=== PATIENT | female | born 1995 | race Caucasian/White ===

== ENCOUNTER 2018-06-20 21:06 | Emergency (ER) | payer OTHER ==
[~2018-06-20] VITALS: Ht 170.2 cm; Wt 68.2 kg
[2018-06-20 21:07] VITALS: BP 140/83
[2018-06-20] MEDS ORDERED: KETOROLAC 60 MG/2 ML VIAL (J1885) IM ONE (22:45)
[2018-06-20] MEDS ORDERED: KETOROLAC 30 MG/ML VIAL (J1885) IM ONE (23:00)
[2018-06-20 23:19] LABS: INFLUENZA A AMPLIFICATION NEGATIVE (NEGATIVE); INFLUENZA B AMPLIFICATION NEGATIVE (NEGATIVE)
[2018-06-20] MEDS ORDERED: CHLO1.4S2 MT (23:34)
[2018-06-20] MEDS ORDERED: IBUP-1114 PO (23:34)
[2018-06-20] MEDS ORDERED: PERCOCET 5MG/325MG TAB PO ONE (23:45)
--- NOTE | 2018-06-21 01:38 | REP ---
Clinical: Cough . Comparison: None . Technique: PA and lateral. Findings: The mediastinum and cardiac silhouette are normal. The lung jones are clear and without acute consolidation, effusion, or pneumothorax. The skeletal structures are intact and normal. Impression: 1. No acute cardiopulmonary process. Electronically Signed by Judd Corona MD 06/21/2018 01:29 A
== END 2018-06-21 00:11 | disposition home or self-care (01) ==
LOC: M ED 21:06
DX: J06.9 Acute upper respiratory infection, unspecified (principal); F17.200 Nicotine dependence, unspecified, uncomplicated
CPT/HCPCS: 71046; 81025; 87502; 87880; 96372; 99284; J1885

== ENCOUNTER → 2020-06-12 | Outpatient (REF) | payer OTHER ==
[~2020-06-12] MED LIST: CHLO1.4S2 MT; IBUP-1114 PO
== END ==
LOC: M PLALAB 10:39
PROVIDERS: ATTEND Obstetrics & Gynecology
DX: Z34.02 Encounter for supervision of normal first pregnancy, second trimester (principal)

== ENCOUNTER → 2020-07-30 | Outpatient (CLI) | payer OTHER ==
--- NOTE | 2020-07-31 07:36 | REP ---
INDICATION: ANATOMY COMPARISON: None. TECHNIQUE: Transabdominal obstetrical ultrasound with color Doppler evaluation. FINDINGS: Examination demonstrates a single live intrauterine in breech presentation. motion is identified by technologist. Placenta is noted posterior and grade 1 without evidence for placenta previa or abruption. Amniotic fluid volume is normal. Cervix measures 3.1 cm in length and appears closed.. Gestational age by LMP 21 weeks 1 day with ALIYAH 12/09/2020. Gestational age by current measurements 21 weeks 5 days with ALIYAH 12/05/2020. FHR equals 153 beats per minute. BPD: 4.7 cm at 20 weeks 1 day HC: 19.1 cm at 21 weeks 2 days AC: 17.1 cm at 22 weeks 0 days FL: 3.8 cm at 22 weeks 0 days HL: 3.7 cm at 22 weeks 5 days HC/AC: 1.12 Estimated weight 461 grams (83rdpercentile). Anatomical assessment demonstrates normal structures including cranium, choroid plexus, cavum, facial features, lungs, ventricular outflow tracts, diaphragm, stomach, cord insertion/three-vessel cord, bladder, spine, and extremities. Echogenic focus within the left cardiac ventricle consistent with prominent chordae tendineae. Mild renal pelviectasis measuring up to 10 mm in the right kidney. Limited evaluation of the cerebellum and posterior fossa. IMPRESSION: Single live intrauterine in breech presentation demonstrating appropriate estimated weight. Anatomical limitations and findings as described above may warrant re-evaluation and follow-up. <Electronically signed by Judd Corona > 07/31/20 0733
== END ==
LOC: M WHC 13:22
PROVIDERS: ATTEND Specialist
DX: Z36.9 Encounter for antenatal screening, unspecified (principal); Z3A.21 21 weeks gestation of pregnancy

== ENCOUNTER → 2020-08-24 | Outpatient (CLI) | payer OTHER ==
--- NOTE | 2020-08-24 14:22 | REP ---
INDICATION: F/U ANATOMY. COMPARISON: Comparison study July 30, 2020.. TECHNIQUE: Transabdominal obstetric sonography. FINDINGS: Scanning through the gravid uterus demonstrates a viable single intrauterine gestation in cephalic lie. motion is observed and heart rate is recorded at 143 beats per minute. A posterior placenta is seen, grade . One, without evidence of placenta previa. Closed cervical length is measured at 3.4 cm transabdominally. No extrauterine abnormality is observed. Amniotic fluid is subjectively normal. Echogenic foci no longer visible in the left left ventricle. Bilateral renal pyelectasis is observed right more so than left. The AP dimension of the renal pelvis on the right is 11 mm and on the left is 5 mm. Urinary bladder is not distended. urinary tract sonography is recommended. Posterior fossa is seen today and felt to be unremarkable.. Biometry chart: BPD 5.9 cm, 24 weeks 1 day Head circumference 23.0 cm, 25 weeks 0 days Abdominal circumference 19.7 cm, 24 weeks 2 days Femur length 4.6 cm, 25 weeks 2 days Humeral length 4.2 cm, 25 weeks 2 days HC AC ratio normal 1.17 Cephalic index normal 0.70 Estimated weight 734 g, 1 lb 9 oz, 43rd percentile for 24 weeks 5 days IMPRESSION: Viable single intrauterine gestation at 24 weeks 6 days by today's composite sonographic criteria. ALIYAH by today's sonography December 08, 2020.. No complication identified. Expected gestational age estimate based on ALIYAH of December 09, 2020 is 24 weeks 5 days. Appropriate interval growth. Bilateral renal pyelectasis. Follow-up obstetric scan and urinary tract sonography recommended. <Electronically signed by Ayan Zhang > 08/24/20 [id number]
== END ==
LOC: M WHC 13:21
PROVIDERS: ATTEND Specialist
DX: Z34.02 Encounter for supervision of normal first pregnancy, second trimester (principal)

== ENCOUNTER → 2020-10-01 | Outpatient (CLI) | payer OTHER ==
--- NOTE | 2020-10-02 07:04 | REP ---
INDICATION: ANATOMY COMPARISON: 08/24/2020 TECHNIQUE: Transabdominal obstetrical ultrasound with color Doppler evaluation. FINDINGS: Examination demonstrates a single live intrauterine in cephalic presentation. motion is identified by technologist. Placenta is noted posterior and grade 1 without evidence for placenta previa or abruption. Amniotic fluid volume is normal. Selected gestational age: 30 weeks 1 day with ALIYAH 12/09/2020. Gestational age by current measurements 30 weeks 6 days with ALIYAH 12/04/2020. FHR equals 150 beats per minute. GAGAN: 10.2 cm (9.0-23.5) Umbilical artery SD ratio: 2.95 (1.95-4.08) Estimated weight 1627 grams (58thpercentile). Anatomical assessment demonstrates normal structures including cranium, choroid plexus, cavum, cerebellum/posterior fossa, facial features, lungs, four-chamber heart/ventricular outflow tracts, diaphragm, stomach, cord insertion/three-vessel cord, bladder, spine, and extremities. Bilateral renal hydronephrosis noted. IMPRESSION: Single live intrauterine in cephalic presentation demonstrating appropriate estimated weight. Renal hydronephrosis warrants follow-up examination. <Electronically signed by Judd Corona > 10/02/20 0700
== END ==
LOC: M WHC 13:00
PROVIDERS: ATTEND Specialist
DX: Z34.82 Encounter for supervision of other normal pregnancy, second trimester (principal)

== ENCOUNTER → 2020-11-13 | Outpatient (REF) | payer OTHER | LOC: M SFHCWAGY 13:00 | PROVIDERS: ATTEND Advanced Practice Midwife | DX: Z36.89 Encounter for other specified antenatal screening (principal); Z3A.36 36 weeks gestation of pregnancy ==

== ENCOUNTER 2020-11-22 08:48 | Outpatient (CLI) | payer OTHER ==
[2020-11-22] VITALS (8 sets, daily range): BP systolic 121–126; BP diastolic 58–67
[~2020-11-22] VITALS: Ht 170.2 cm; Wt 103.6 kg
[2020-11-22] MEDS ORDERED: PREN1TAB33 PO (09:17)
[2020-11-22] MEDS ORDERED: HOME MED LIST COMPLETE! XX SCH (09:20)
[2020-11-22 09:54] LABS: HEMATOCRIT 35.4 % (36.0-47.0); HEMOGLOBIN 11.5 g/dl (12.0-15.5); MEAN CORPUSCULAR HEMOGLOBIN 29.5 pg (27.0-33.0); MEAN CORPUSCULAR HGB CONC 32.5 g/dl (32.0-36.5); MEAN CORPUSCULAR VOLUME 90.8 fl (80.0-96.0); PLATELET COUNT, AUTOMATED 184 10^3/uL (150-450); WHITE BLOOD COUNT 9.7 10^3/uL (4.0-10.0)
[2020-11-22 10:15] LABS: CREATININE,RANDOM URINE 21.9 MG/DL; TOTAL PROTEIN,RANDOM URINE 6.5 MG/DL (0.0-12.0)
[2020-11-22 10:43] LABS: ALBUMIN 2.5 GM/DL (3.2-5.2); ALT/SGPT 14 U/L (12-78); BILIRUBIN,TOTAL 0.1 MG/DL (0.2-1.0); BLOOD UREA NITROGEN 9 MG/DL (7-18); CALCIUM LEVEL 9.1 MG/DL (8.5-10.1); CARBON DIOXIDE LEVEL 24 MEQ/L (21-32); CHLORIDE LEVEL 106 MEQ/L (98-107); CREATININE FOR GFR 0.52 MG/DL (0.55-1.30); GLOMERULAR FILTRATION RATE > 60.0 (>60); GLUCOSE, FASTING 77 MG/DL (70-100); POTASSIUM SERUM 4.3 MEQ/L (3.5-5.1); SODIUM LEVEL 139 MEQ/L (136-145); TOTAL PROTEIN 6.3 GM/DL (6.4-8.2)
--- NOTE | 2020-11-22 11:49 | IPNPDOC ---
Text Note Date of Service The patient was seen on 11/22/20. NOTE Triage Note Yamile is a 25yo with SIUP at 37w4d presenting to triage from OB office visit where she was noted to have an elevated bp. This is first elevated bp in her - her baseline is 120's/60's. She has no complaints. Good movement, no vaginal bleeding, no loss of fluid, no ctx. No ALATORRE/vision changes/RUQ pain. Vitals: all 7 bp's wnl, afebrile Gen: WDWN, resting comfortably Abdomen: soft, gravid, NTTP Extremities: no edema of BLE NST: reactive, +accels, -decels, mod kiara [place]: no ctx pattern Labs: urine prot:creat 0.2968 Plt 184, serum creat 0.52, AST 11, ALT 14 Assessment: Yamile is a 25yo with SIUP at 37w4d with NO evidence of pre-eclampsia and does not yet meet criteria for GHTN since only an isolated episode of elevated bp in clinic which was not found on repeat here today. Urine prot:creat rounds up to 0.3, but in the absence of any other elevated bp's, cannot make a dx of pre-E. She has no sx of pre-E. Reassuring assessment. Plan: -Safe for discharge home -Pt instructed to return in 2 days for repeat bp check -Discussed return precautions at length, to include s/sx of pre-E -Continue good hydration Rea Montano MD VS,Kevon, I+O VSKevon I+O Laboratory Tests 11/22/20 09:35 Vital Signs Date Time Temp Pulse Resp B/P (MAP) Pulse Ox O2 Delivery O2 Flow Rate FiO2 11/22/20 11:03 97.9 80 18 122/67 (85) Rea Montano MD Nov 22, 2020 11:49
[2020-12-06] MEDS ORDERED: IBUP80TA PO (23:40)
[2020-12-06] MEDS ORDERED: PERCOCET PO (23:49)
== END 2020-11-22 11:18 | disposition home or self-care (01) ==
LOC: M LDO 08:48
PROVIDERS: ATTEND Obstetrics & Gynecology
DX: O26.893 Other specified pregnancy related conditions, third trimester (principal); R03.0 Elevated blood-pressure reading, without diagnosis of hypertension; Z3A.37 37 weeks gestation of pregnancy
CPT/HCPCS: 36415; 59025; 80053; 82570; 84156; 85027; G0378; G0463

== ENCOUNTER 2020-11-24 09:48 | Outpatient (CLI) | payer OTHER ==
[~2020-11-24] VITALS: Ht 170.2 cm; Wt 103.5 kg
[~2020-11-24 09:48] MED LIST changes: +PREN1TAB33 PO
[2020-11-24] MEDS ORDERED: HOME MED LIST COMPLETE! XX SCH (10:00)
[2020-11-24 10:06] VITALS: BP 136/63
[2020-11-24 10:24] VITALS: BP 131/77
== END 2020-11-24 12:35 | disposition home or self-care (01) ==
LOC: M LDO 09:48
PROVIDERS: ATTEND Obstetrics & Gynecology
DX: O26.893 Other specified pregnancy related conditions, third trimester (principal); R03.0 Elevated blood-pressure reading, without diagnosis of hypertension; Z3A.37 37 weeks gestation of pregnancy
CPT/HCPCS: 59025; G0378; G0463